=== PATIENT | female | born 1975 | race Caucasian/White ===

== ENCOUNTER 2024-03-25 02:24 | Outpatient (CLI) | payer SELFPAY ==
--- NOTE | 2024-03-25 | DI.DEXA_ITS ---
Exam(s) XR DEXA BONE DENSITY W/WO KIMBER EXAM: XR DEXA BONE DENSITY W/WO KIMBER CLINICAL HISTORY: Rt stage I breast CA, C50.911; aromatase inhibitor use, Z79.811;s/p SAMANTHA-BSO TECHNIQUE: COMPARISON: No exams were available for comparison FINDINGS: Lateral Spine Image: Unremarkable. No compression deformities identified. Left hip: Total T-Score: 0.1 Total Z-Score: 0.6 T- and Z-scores: Within normal limits. Lumbar Spine: Total T-Score: -1.0 Total Z-Score: -0.3 T- and Z-scores: Within normal limits. IMPRESSION: No evidence of osteoporosis.
== END 2024-03-25 02:44 ==
LOC: DI 02:25
PROVIDERS: Visit Provider Internal Medicine Hematology & Oncology
DX: Z13.820 Encounter for screening for osteoporosis (principal); C50.911 Malignant neoplasm of unspecified site of right female breast; Z79.811 Long term (current) use of aromatase inhibitors
CPT/HCPCS: 77080

== ENCOUNTER 2024-05-06 01:36 | Outpatient (CLI) | payer MEDICAID, SELFPAY ==
--- NOTE | 2024-05-06 | DI.CT_ITS ---
Exam(s) CT CHEST W EXAM: CT CHEST W CLINICAL HISTORY: Malignant neoplasm of UOQ, rt breast, estrogen receptor +, C50.411, Z17.0 TECHNIQUE: Imaging Protocol: Axial computed tomography images with coronal and sagittal reformatted images were created and reviewed. Computer aided detection (CAD) was utilized. CONTRAST MATERIAL: Intravenous: Omnipaque 350 Contrast volume:70 ml. COMPARISON: No exams were available for comparison FINDINGS: Pulmonary parenchyma: No consolidation. No dominant measurable mass. Tracheobronchial tree: No bronchiectasis or mucous plugging. Mediastinum and Maribel: No dominant adenopathy or fluid collection. Pleura: No effusion. No pneumothorax. Heart: The heart is not dilated. No coronary artery calcifications are seen. Aorta: Thoracic aorta non-dilated. Mild atherosclerotic changes. Pulmonary arteries: No gross evidence of emboli. Upper abdomen: 3.7 centimeter solid enhancing mass is noted at the upper pole of the left kidney. En larged liver with fatty infiltration. Bones: Degenerative changes in the spine. Spinal stimulator device. No suspicious bony lesions. Soft tissues: Few tiny metallic densities are noted in the soft tissues of the lower right axilla and right breast. IMPRESSION: No of metastatic disease in the chest. Suspicious solid mass of the left kidney. Further evaluation with abdomen pelvic CT could be obtaine d. Unexpected findings RADIATION DOSE DELIVERED: 164.04mGy.cm Total DLP DATA REPOSITORY: All CT scans at this facility are submitted to the National Radiology Data Registry (NRDR) Dose Index Registry (DIR) with the [employer] ([employer]). RADIATION OPTIMIZATION: All CT scans at this facility use at least one of these dose optimization te chniques: automated exposure control; mA and/or kV adjustment per patient size (includes targeted exa ms where dose is matched to clinical indication); or iterative reconstruction.
[2024-05-06 13:55] LABS: CREATININE 0.9 mg/dL (0.55-1.02); Estimated GFR 78.37 (mL/min/1.73m2)
[2024-05-06] MEDS: Omnipaque 350 MG/ML 100 ML BTL IJ (14:12)
== END 2024-05-06 01:56 ==
PROVIDERS: PCP Physician Assistant; Visit Provider Radiology Radiation Oncology
DX: C50.411 Malignant neoplasm of upper-outer quadrant of right female breast (principal); Z17.0 Estrogen receptor positive status [ER+]; R93.2 Abnormal findings on diagnostic imaging of liver and biliary tract
CPT/HCPCS: 71260; 82565; J3490